=== PATIENT | male | born 1980 | race African-American/Black ===

== ENCOUNTER 2018-08-01 10:54 | Inpatient (IN) | payer BC ==
[2018-08-01 12:03] VITALS: BMI 27.3
--- NOTE | 2018-08-01 15:40 | HP ---
CIWA Score Nausea/Vomitin-Int. Nausea w/Dry Heave Muscle Tremors: 4-Moderate,w/Arms Extend Anxiety: 3 Agitation: 2 Paroxysmal Sweats: 3 Orientation: 0-Oriented Tacttile Disturbances: 0-None Auditory Disturbances: 0-None Visual Disturbances: 0-None Headache: 0-None Present CIWA-Ar Total Score: 16 - Admission Criteria OASAS Guidelines: Admission for Medically Managed Detox: Requires at least one of the followin. CIWA greater than 12 2. Seizures within the past 24 hours 3. Delirium tremens within the past 24 hours 4. Hallucinations within the past 24 hours 5. Acute intervention needed for co occurring medical disorder 6. Acute intervention needed for co occurring psychiatric disorder 7. Severe withdrawal that cannot be handled at a lower level of care (continued vomiting, continued diarrhea, abnormal vital signs) requiring intravenous medication and/or fluids 8. Patient presents the following: CIWA greater than 12 Admission Criteria Met: Admission criteria met Admission ROS S - HPI Chief Complaint: "I want to get my life back on track" Allergies/Adverse Reactions: Allergies Allergy/AdvReac Type Severity Reaction Status Date / Time No Known Drug Allergies Allergy Severe Verified 05/07/16 11:54 octopus Allergy Severe Difficulty Verified 05/07/16 11:54 Breathing History of Present Illness: 38 y/o male with a long hx of alcohol addiction presents here for detox. Pt was last here in 2016 for detox, states he went to [place] once since that time. Visited [facility] last night for alcohol related issues and foot pain. Denies alcohol induced seizures but endorses blackouts. Denies any medical nor psychiatric hx. Denies past nor current SI/HI Exam Limitations: No Limitations - Ebola screening Have you traveled outside of the country in the last 21 days: No (N) Have you had contact with anyone from an Ebola affected area: No Have you been sick,other than usual withdrawal symptoms: No Do you have a fever: No - Review of Systems Constitutional: Loss of Appetite, Night Sweats, Changes in sleep EENT: reports: No Symptoms Reported Respiratory: reports: No Symptoms reported Cardiac: reports: No Symptoms Reported GI: reports: Poor Appetite : reports: No Symptoms Reported Musculoskeletal: reports: Back Pain Neuro: reports: No Symptoms reported Endocrine: reports: No Symptoms Reported Hematology: reports: No Symptoms Reported Psychiatric: reports: Orientated x3, Anxious Other Systems: Reviewed and Negative Patient History - Patient Medical History Hx Anemia: No Hx Asthma: No Hx Chronic Obstructive Pulmonary Disease (COPD): No Hx Cancer: No Hx Cardiac Disorders: No Hx Congestive Heart Failure: No Hx Hypertension: No Hx Hypercholesterolemia: No Hx Pacemaker: No HX Cerebrovascular Accident: No Hx Seizures: No Hx Dementia: No Hx Diabetes: No Hx Gastrointestinal Disorders: No (Heart burn) Hx Liver Disease: No Hx Genitourinary Disorders: No Hx Sexually Transmitted Disorders: No Hx Renal Disease (ESRD): No Hx Thyroid Disease: No Hx Human Immunodeficiency Virus (HIV): No (last 10/05 negative) Hx Hepatitis C: No Hx Depression: No Hx Suicide Attempt: No Hx Bipolar Disorder: No Hx Schizophrenia: No - Patient Surgical History Past Surgical History: No Hx Neurologic Surgery: No Hx Cataract Extraction: No Hx Cardiac Surgery: No Hx Lung Surgery: No Hx Breast Surgery: No Hx Breast Biopsy: No Hx Abdominal Surgery: No Hx Appendectomy: No Hx Cholecystectomy: No Hx Genitourinary Surgery: No Hx Section: No Hx Orthopedic Surgery: No Anesthesia Reaction: No - PPD History Previous Implant?: Yes Documented Results: Negative w/proof Implanted On Prior R Admission?: Yes Date: 05/09/16 Results: 0 MM PPD to be Administered?: Yes - Reproductive History Patient is a Female of Child Bearing Age (11 -55 yrs old): No - Smoking Cessation Smoking history: Current every day smoker Have you smoked in the past 12 months: Yes Aproximately how many cigarettes per day: 10 Cigars Per Day: 0 Hx Chewing Tobacco Use: No Initiated information on smoking cessation: Yes 'Breaking Loose' booklet given: 08/01/18 - Substance & Tx. History Hx Alcohol Use: Yes Hx Substance Use: Yes Substance Use Type: Cocaine Hx Substance Use Treatment: Yes - Substances Abused Alcohol Route: Oral Frequency: Daily Amount used: 2 ( 6 of 24 oz), 2 pints of vodka Age of first use: Date of Last Use: 07/31/18 Crack Route: Smoking Frequency: 3-6 times per week Amount used: $50 Age of first use: Date of Last Use: 07/31/18 Family Disease History - Family Disease History Family History: Unremarkable Admission Physical Exam BHS - Vital Signs Vital Signs: Vital Signs - 24 hr 08/01/18 12:01 Temperature 98.4 F Pulse Rate 119 H Respiratory 19 Rate Blood Pressure 135/89 - Physical General Appearance: Yes: Moderate Distress, Tremorous HEENTM: Yes: Nasal Congestion Respiratory: Yes: Lungs Clear, Normal Breath Sounds, No Respiratory Distress, No Accessory Muscle Use Neck: Yes: No masses,lesions,Nodules, Trachea in good position Breast: Yes: Breast Exam Deferred Cardiology: Yes: Within Normal Limits, Tachycardia Abdominal: Yes: Normal Bowel Sounds, Non Tender, Soft, Distended Genitourinary: Yes: Within Normal Limits Back: Yes: Normal Inspection Musculoskeletal: Yes: full range of Motion, Gait Steady Extremities: Yes: Normal Capillary Refill, Normal Range of Motion, Non-Tender Neurological: Yes: Fully Oriented, Alert, Motor Strength 5/5, Normal Mood/Affect , Normal Response Integumentary: Yes: Normal Color, Warm Lymphatic: Yes: Within Normal Limits - Diagnostic (1) Alcohol dependence with uncomplicated withdrawal Current Visit: Yes Status: Acute (2) Cocaine dependence Current Visit: Yes Status: Chronic (3) Nicotine dependence Current Visit: Yes Status: Chronic Cleared for Admission [facility] - Detox or Rehab [facility] Level of Care: Medically Managed Detox Regimen/Protocol: Librium [facility] Breath Alcohol Content Breath Alcohol Content: 0.007 Urine Drug Screen - Results Drug Screen Negative: No Urine Drug Screen Results: [facility] Inpatient Rehab Admission - Rehab Decision to Admit Inpatient rehab admission?: No
[2018-08-01] MEDS ORDERED: MENTHOL/PHENOL 1 EACH UD MM PRN (16:06)
[2018-08-01] MEDS ORDERED: MAG HYDROX/AL HYDROX/SIMETH 30 ML UNIT-DOSE CUP PO PRN (16:06)
[2018-08-01] MEDS ORDERED: guaiFENesin/D-METHORPHAN HB 10 ML UNIT-DOSE CUPS PO PRN (16:06)
[2018-08-01] MEDS ORDERED: LOPERAMIDE HCL 2 MG CAPSULE PO PRN (16:06)
[2018-08-01] MEDS ORDERED: MAGNESIUM HYDROX 2400MG/30ML ORAL SUSPENSION 30 ML CUP PO PRN (16:06)
[2018-08-01] MEDS ORDERED: chlordiazePOXIDE HCL 25 MG CAPSULE PO PRN (16:06)
[2018-08-01] MEDS ORDERED: MAGNESIUM CITRATE 300 ML BOTTLE PO PRN (16:06)
[2018-08-01] MEDS ORDERED: P-EPHED 60MG/TRIPROLIDI 2.5MG TABLET PO PRN (16:06)
[2018-08-01] MEDS ORDERED: METHADONE HCL 10 MG TABLET (FOR DETOX USE ONLY) PO ONE ×2 (17:30→23:00)
[2018-08-01] MEDS: chlordiazePOXIDE HCL 25 MG CAPSULE PO SCH ×2 (17:45→22:28)
[2018-08-01] MEDS: THIAMINE HCL 100 MG TABLET (FP) PO SCH (22:28)
[2018-08-02] MEDS: chlordiazePOXIDE HCL 25 MG CAPSULE PO SCH ×4 (05:27→22:27)
[2018-08-02 09:52] LABS: HEMATOCRIT 39.9 % (35.4-49); HEMOGLOBIN 13.2 GM/dL (11.7-16.9); MCH 26.8 pg (25.7-33.7); MCHC 33.2 g/dl (32.0-35.9); MEAN CELL VOLUME 80.9 fl (80-96); PLATELET COUNT 298 K/MM3 (134-434); RBC 4.93 M/mm3 (4.00-5.60); RDW 16.3 % (11.9-15.9); WHITE BLOOD COUNT 5.2 K/mm3 (4.0-10.0)
[2018-08-02] MEDS ORDERED: METHADONE HCL 10 MG TABLET (FOR DETOX USE ONLY) PO SCH (10:00)
[2018-08-02] MEDS: PRENATAL VITAMINS W/ FOLIC ACID TABLET (FP) PO SCH (10:08)
[2018-08-02 10:12] LABS: ALBUMIN 3.2 g/dl (3.4-5.0); ALK PHOS 66 U/L (45-117); ANION GAP 5 MMOL/L (8-16); BILIRUBIN,TOTAL 0.4 mg/dL (0.2-1); BLOOD UREA NITROGEN 12 mg/dL (7-18); CALCIUM 8.7 mg/dL (8.5-10.1); CHLORIDE 105 mmol/L (98-107); CO2 28 mmol/L (21-32); CREATININE 0.8 mg/dL (0.55-1.3); GLUCOSE,RANDOM 94 mg/dL (74-106); POTASSIUM 4.4 mmol/L (3.5-5.1); SGOT/AST 18 U/L (15-37); SGPT/ALT 23 U/L (13-61); SODIUM 138 mmol/L (136-145); TOT PROT 6.4 g/dl (6.4-8.2)
--- NOTE | 2018-08-02 12:06 | PN ---
[facility] CIWA - CIWA Score Nausea/Vomitin-Mild Nausea/No Vomiting Muscle Tremors: 3 Anxiety: 4-Mod. Anxious/Guarded Agitation: 3 Paroxysmal Sweats: 1-Minimal Palms Moist Orientation: 1-Uncertain about Date Tacttile Disturbances: 0-None Auditory Disturbances: 0-None Visual Disturbances: 0-None Headache: 1-Very Mild CIWA-Ar Total Score: 14 S Progress Note (SOAP) Subjective: tremor sweating able to tolerate food and fluid well Objective: 08/02/18 12:06 Vital Signs Temperature 96.3 F L 08/02/18 09:18 Pulse Rate 93 H 08/02/18 09:18 Respiratory Rate 18 08/02/18 09:18 Blood Pressure 120/80 08/02/18 09:18 O2 Sat by Pulse Oximetry (%) Laboratory Last Values WBC 5.2 K/mm3 (4.0-10.0) 08/02/18 07:50 RBC 4.93 M/mm3 (4.00-5.60) 08/02/18 07:50 Hgb 13.2 GM/dL (11.7-16.9) 08/02/18 07:50 Hct 39.9 % (35.4-49) 08/02/18 07:50 MCV 80.9 fl (80-96) 08/02/18 07:50 MCH 26.8 pg (25.7-33.7) 08/02/18 07:50 MCHC 33.2 g/dl (32.0-35.9) 08/02/18 07:50 RDW 16.3 % (11.9-15.9) H 08/02/18 07:50 Plt Count 298 K/MM3 (134-434) 08/02/18 07:50 MPV 9.0 fl (7.5-11.1) 08/02/18 07:50 Sodium 138 mmol/L (136-145) 08/02/18 07:50 Potassium 4.4 mmol/L (3.5-5.1) 08/02/18 07:50 Chloride 105 mmol/L (98-107) 08/02/18 07:50 Carbon Dioxide 28 mmol/L (21-32) 08/02/18 07:50 Anion Gap 5 MMOL/L (8-16) L 08/02/18 07:50 BUN 12 mg/dL (7-18) 08/02/18 07:50 Creatinine 0.8 mg/dL (0.55-1.3) 08/02/18 07:50 Creat Clearance w eGFR > 60 (>60) 08/02/18 07:50 Random Glucose 94 mg/dL (74-106) 08/02/18 07:50 Calcium 8.7 mg/dL (8.5-10.1) 08/02/18 07:50 Total Bilirubin 0.4 mg/dL (0.2-1) 08/02/18 07:50 AST 18 U/L (15-37) 08/02/18 07:50 ALT 23 U/L (13-61) 08/02/18 07:50 Alkaline Phosphatase 66 U/L (45-117) 08/02/18 07:50 Total Protein 6.4 g/dl (6.4-8.2) 08/02/18 07:50 Albumin 3.2 g/dl (3.4-5.0) L 08/02/18 07:50 RPR Titer Nonreactive (NONREACTIVE) 08/02/18 07:50 lab noted Assessment: 08/02/18 12:06 withdrawal sx Plan: continue detox
[2018-08-02] MEDS: IBUPROFEN 400 MG TABLET (FP) PO PRN (17:51)
[2018-08-02] MEDS: THIAMINE HCL 100 MG TABLET (FP) PO SCH (22:27)
[2018-08-02] MEDS: MELATONIN 5 MG TABLETS PO PRN (22:28)
[2018-08-03] MEDS: chlordiazePOXIDE HCL 25 MG CAPSULE PO SCH ×2 (05:46→10:06)
[2018-08-03] MEDS: PRENATAL VITAMINS W/ FOLIC ACID TABLET (FP) PO SCH (10:06)
[2018-08-03] MEDS: METHADONE HCL 5 MG TABLET (FOR DETOX USE ONLY) PO SCH (10:06)
--- NOTE | 2018-08-03 15:49 | PN ---
[facility] CIWA - CIWA Score Nausea/Vomitin-No Nausea/No Vomiting Muscle Tremors: 3 Anxiety: 2 Agitation: 3 Paroxysmal Sweats: 1-Minimal Palms Moist Orientation: 1-Uncertain about Date Tacttile Disturbances: 0-None Auditory Disturbances: 0-None Visual Disturbances: 0-None Headache: 1-Very Mild CIWA-Ar Total Score: 11 S Progress Note (SOAP) Subjective: tremor sweating restlessness Objective: 08/03/18 15:49 Vital Signs Temperature 97.1 F L 08/03/18 13:11 Pulse Rate 84 08/03/18 13:11 Respiratory Rate 18 08/03/18 13:11 Blood Pressure 108/62 08/03/18 13:11 O2 Sat by Pulse Oximetry (%) Laboratory Last Values WBC 5.2 K/mm3 (4.0-10.0) 08/02/18 07:50 RBC 4.93 M/mm3 (4.00-5.60) 08/02/18 07:50 Hgb 13.2 GM/dL (11.7-16.9) 08/02/18 07:50 Hct 39.9 % (35.4-49) 08/02/18 07:50 MCV 80.9 fl (80-96) 08/02/18 07:50 MCH 26.8 pg (25.7-33.7) 08/02/18 07:50 MCHC 33.2 g/dl (32.0-35.9) 08/02/18 07:50 RDW 16.3 % (11.9-15.9) H 08/02/18 07:50 Plt Count 298 K/MM3 (134-434) 08/02/18 07:50 MPV 9.0 fl (7.5-11.1) 08/02/18 07:50 Sodium 138 mmol/L (136-145) 08/02/18 07:50 Potassium 4.4 mmol/L (3.5-5.1) 08/02/18 07:50 Chloride 105 mmol/L (98-107) 08/02/18 07:50 Carbon Dioxide 28 mmol/L (21-32) 08/02/18 07:50 Anion Gap 5 MMOL/L (8-16) L 08/02/18 07:50 BUN 12 mg/dL (7-18) 08/02/18 07:50 Creatinine 0.8 mg/dL (0.55-1.3) 08/02/18 07:50 Creat Clearance w eGFR > 60 (>60) 08/02/18 07:50 Random Glucose 94 mg/dL (74-106) 08/02/18 07:50 Calcium 8.7 mg/dL (8.5-10.1) 08/02/18 07:50 Total Bilirubin 0.4 mg/dL (0.2-1) 08/02/18 07:50 AST 18 U/L (15-37) 08/02/18 07:50 ALT 23 U/L (13-61) 08/02/18 07:50 Alkaline Phosphatase 66 U/L (45-117) 08/02/18 07:50 Total Protein 6.4 g/dl (6.4-8.2) 08/02/18 07:50 Albumin 3.2 g/dl (3.4-5.0) L 08/02/18 07:50 RPR Titer Nonreactive (NONREACTIVE) 08/02/18 07:50 lab noted Assessment: 08/03/18 15:49 withdrawal sx Plan: continue detox
[2018-08-03] MEDS: chlordiazePOXIDE 5 MG CAPSULE PO SCH ×2 (17:32→22:22)
[2018-08-03] MEDS: THIAMINE HCL 100 MG TABLET (FP) PO SCH (22:22)
[2018-08-03] MEDS: MELATONIN 5 MG TABLETS PO PRN (22:22)
[2018-08-04] MEDS: chlordiazePOXIDE 5 MG CAPSULE PO SCH ×2 (05:42→10:28)
[2018-08-04] MEDS: ACETAMINOPHEN 325 MG TABLET (FP) PO PRN ×2 (06:08→11:02)
[2018-08-04] MEDS: PRENATAL VITAMINS W/ FOLIC ACID TABLET (FP) PO SCH (10:28)
[2018-08-04] MEDS: METHADONE HCL 5 MG TABLET (FOR DETOX USE ONLY) PO SCH (10:28)
--- NOTE | 2018-08-04 11:08 | PN ---
[facility] CIWA - CIWA Score Nausea/Vomitin-No Nausea/No Vomiting Muscle Tremors: 1-None Visible, but Tamms Anxiety: 2 Agitation: 1-Slight > Activity Paroxysmal Sweats: 2 Orientation: 1-Uncertain about Date Tacttile Disturbances: 0-None Auditory Disturbances: 0-None Visual Disturbances: 0-None Headache: 0-None Present CIWA-Ar Total Score: 7 BHS Progress Note (SOAP) Subjective: feeling better less tremor mild sweating sleep better at night Objective: 08/04/18 11:09 Vital Signs Temperature 96.9 F L 08/04/18 09:08 Pulse Rate 107 H 08/04/18 09:08 Respiratory Rate 18 08/04/18 09:08 Blood Pressure 103/73 08/04/18 09:08 O2 Sat by Pulse Oximetry (%) Laboratory Last Values WBC 5.2 K/mm3 (4.0-10.0) 08/02/18 07:50 RBC 4.93 M/mm3 (4.00-5.60) 08/02/18 07:50 Hgb 13.2 GM/dL (11.7-16.9) 08/02/18 07:50 Hct 39.9 % (35.4-49) 08/02/18 07:50 MCV 80.9 fl (80-96) 08/02/18 07:50 MCH 26.8 pg (25.7-33.7) 08/02/18 07:50 MCHC 33.2 g/dl (32.0-35.9) 08/02/18 07:50 RDW 16.3 % (11.9-15.9) H 08/02/18 07:50 Plt Count 298 K/MM3 (134-434) 08/02/18 07:50 MPV 9.0 fl (7.5-11.1) 08/02/18 07:50 Sodium 138 mmol/L (136-145) 08/02/18 07:50 Potassium 4.4 mmol/L (3.5-5.1) 08/02/18 07:50 Chloride 105 mmol/L (98-107) 08/02/18 07:50 Carbon Dioxide 28 mmol/L (21-32) 08/02/18 07:50 Anion Gap 5 MMOL/L (8-16) L 08/02/18 07:50 BUN 12 mg/dL (7-18) 08/02/18 07:50 Creatinine 0.8 mg/dL (0.55-1.3) 08/02/18 07:50 Creat Clearance w eGFR > 60 (>60) 08/02/18 07:50 Random Glucose 94 mg/dL (74-106) 08/02/18 07:50 Calcium 8.7 mg/dL (8.5-10.1) 08/02/18 07:50 Total Bilirubin 0.4 mg/dL (0.2-1) 08/02/18 07:50 AST 18 U/L (15-37) 08/02/18 07:50 ALT 23 U/L (13-61) 08/02/18 07:50 Alkaline Phosphatase 66 U/L (45-117) 08/02/18 07:50 Total Protein 6.4 g/dl (6.4-8.2) 08/02/18 07:50 Albumin 3.2 g/dl (3.4-5.0) L 08/02/18 07:50 RPR Titer Nonreactive (NONREACTIVE) 08/02/18 07:50 lab noted Assessment: 08/04/18 11:09 mild withdrawal sx Plan: continue detox
[2018-08-04] MEDS: chlordiazePOXIDE HCL 10 MG CAPSULE PO SCH ×2 (17:06→22:11)
[2018-08-04] MEDS: THIAMINE HCL 100 MG TABLET (FP) PO SCH (22:09)
[2018-08-04] MEDS: MELATONIN 5 MG TABLETS PO PRN (22:11)
[2018-08-05] MEDS: chlordiazePOXIDE HCL 10 MG CAPSULE PO SCH ×2 (05:57→10:17)
[2018-08-05] MEDS: IBUPROFEN 400 MG TABLET (FP) PO PRN (05:59)
[2018-08-05] MEDS ORDERED: METHADONE HCL 10 MG TABLET (FOR DETOX USE ONLY) PO SCH (10:00)
[2018-08-05] MEDS: PRENATAL VITAMINS W/ FOLIC ACID TABLET (FP) PO SCH (10:17)
[2018-08-05 13:57] VITALS: BP 120/81; PULSE 94; TEMP 97.2
--- NOTE | 2018-08-05 16:38 | DS ---
[facility] Detox Discharge Summary Admission Date: 08/01/18 Discharge Date: 08/05/18 - History Present History: Alcohol Dependence Additional Comments: 38 years old male admitted on 08/01/18 for alcohol withdrawal stabilization completed detox regimen [facility] Pertinent Past History: encourage the patient to attend 12 step community self help group - Physical Exam Results Vital Signs: Vital Signs Temperature 97.2 F L 08/05/18 13:56 Pulse Rate 94 H 08/05/18 13:56 Respiratory Rate 18 08/05/18 13:56 Blood Pressure 120/81 08/05/18 13:56 O2 Sat by Pulse Oximetry (%) Pertinent Admission Physical Exam Findings: alcohol withdrawal sx Laboratory Last Values WBC 5.2 K/mm3 (4.0-10.0) 08/02/18 07:50 RBC 4.93 M/mm3 (4.00-5.60) 08/02/18 07:50 Hgb 13.2 GM/dL (11.7-16.9) 08/02/18 07:50 Hct 39.9 % (35.4-49) 08/02/18 07:50 MCV 80.9 fl (80-96) 08/02/18 07:50 MCH 26.8 pg (25.7-33.7) 08/02/18 07:50 MCHC 33.2 g/dl (32.0-35.9) 08/02/18 07:50 RDW 16.3 % (11.9-15.9) H 08/02/18 07:50 Plt Count 298 K/MM3 (134-434) 08/02/18 07:50 MPV 9.0 fl (7.5-11.1) 08/02/18 07:50 Sodium 138 mmol/L (136-145) 08/02/18 07:50 Potassium 4.4 mmol/L (3.5-5.1) 08/02/18 07:50 Chloride 105 mmol/L (98-107) 08/02/18 07:50 Carbon Dioxide 28 mmol/L (21-32) 08/02/18 07:50 Anion Gap 5 MMOL/L (8-16) L 08/02/18 07:50 BUN 12 mg/dL (7-18) 08/02/18 07:50 Creatinine 0.8 mg/dL (0.55-1.3) 08/02/18 07:50 Creat Clearance w eGFR > 60 (>60) 08/02/18 07:50 Random Glucose 94 mg/dL (74-106) 08/02/18 07:50 Calcium 8.7 mg/dL (8.5-10.1) 08/02/18 07:50 Total Bilirubin 0.4 mg/dL (0.2-1) 08/02/18 07:50 AST 18 U/L (15-37) 08/02/18 07:50 ALT 23 U/L (13-61) 08/02/18 07:50 Alkaline Phosphatase 66 U/L (45-117) 08/02/18 07:50 Total Protein 6.4 g/dl (6.4-8.2) 08/02/18 07:50 Albumin 3.2 g/dl (3.4-5.0) L 08/02/18 07:50 RPR Titer Nonreactive (NONREACTIVE) 08/02/18 07:50 lab noted - Treatment Hospital Course: Detox Protocol Followed, Detoxed Safely, Responded well, Discharged Condition Good, Rehab Referral Accepted Patient has Accepted [facility] Referral [facility]: [facility] - Medication Discharge Medications: Ambulatory Orders NK [No Known Home Medication] 07/06/14 - Diagnosis (1) Alcohol dependence with uncomplicated withdrawal Status: Acute (2) Nicotine dependence Status: Acute Qualifiers: Nicotine product type: cigarettes Substance use status: in withdrawal Qualified Code(s): F17.213 - Nicotine dependence, cigarettes, with withdrawal - AMA Did Patient Leave Against Medical Advice: No
[2018-08-06] MEDS ORDERED: METHADONE HCL 5 MG TABLET (FOR DETOX USE ONLY) PO SCH (06:00)
== END 2018-08-05 15:09 | disposition home or self-care (01) | DRG 774 ==
LOC: YASAS 10:54 → Y3N 16:53
PROVIDERS: ADMIT Surgery; ATTEND Surgery
PROC: HZ2ZZZZ Detoxification Services for Substance Abuse Treatment (ICD-10-PCS; principal; 2018-08-01)
DX: F10.230 Alcohol dependence with withdrawal, uncomplicated (principal); F14.20 Cocaine dependence, uncomplicated; F17.213 Nicotine dependence, cigarettes, with withdrawal; R00.0 Tachycardia, unspecified
CPT/HCPCS: 36415; 80053; 85027; 86593

== ENCOUNTER 2021-09-15 12:11 | Inpatient (IN) | payer OTHER ==
[2021-09-15 15:18] VITALS: BMI 29.6
[2021-09-15] MEDS ORDERED: MAG HYDROX/AL HYDROX/SIMETH 30 ML UNIT-DOSE CUP PO PRN (16:07)
[2021-09-15] MEDS ORDERED: MENTHOL/PHENOL 1 EACH UD MM PRN (16:07)
[2021-09-15] MEDS ORDERED: LOPERAMIDE HCL 2 MG CAPSULE PO PRN (16:07)
[2021-09-15] MEDS ORDERED: chlordiazePOXIDE HCL 25 MG CAPSULE PO PRN (16:07)
[2021-09-15] MEDS ORDERED: ONDANSETRON *ODT* 4 MG TABLET SL PRN (16:07)
[2021-09-15] MEDS ORDERED: MAGNESIUM HYDROX 2400MG/30ML ORAL SUSPENSION 30 ML CUP PO PRN (16:07)
[2021-09-15] MEDS ORDERED: MAGNESIUM CITRATE 300 ML BOTTLE PO PRN (16:07)
[2021-09-15] MEDS ORDERED: ACETAMINOPHEN 325 MG TABLET (FP) PO PRN ×2 (16:07)
[2021-09-15] MEDS ORDERED: NICOTINE POLACRILEX 2 MG GUM BUC PRN (16:07)
[2021-09-15] MEDS: hydrOXYzine PAMOATE 25 MG CAPSULE (FP) PO SCH ×2 (17:44→22:30)
[2021-09-15] MEDS: IBUPROFEN 400 MG TABLET (FP) PO PRN (17:44)
[2021-09-15] MEDS: chlordiazePOXIDE HCL 25 MG CAPSULE PO SCH (22:28)
[2021-09-15] MEDS: THIAMINE HCL 100 MG TABLET (FP) PO SCH (22:30)
[2021-09-15] MEDS: MELATONIN 5 MG TABLETS PO SCH (22:30)
[2021-09-16] MEDS: chlordiazePOXIDE HCL 25 MG CAPSULE PO SCH ×4 (05:24→23:28)
[2021-09-16] MEDS: hydrOXYzine PAMOATE 25 MG CAPSULE (FP) PO SCH ×5 (05:24→23:29)
[2021-09-16] MEDS: PRENATAL VITAMINS W/ FOLIC ACID TABLET (FP) PO SCH (10:08)
[2021-09-16] MEDS: NICOTINE 21 MG/24 HOURS TOPICAL PATCH TD SCH (10:12)
[2021-09-16 10:29] LABS: HEMATOCRIT 41.1 % (35.4-49); HEMOGLOBIN 13.9 GM/dL (11.7-16.9); MCH 27.6 pg (25.7-33.7); MCHC 33.7 g/dl (32.0-35.9); MEAN PLT VOLUME 8.5 fl (7.5-11.1); PLATELET COUNT 323 10^3/uL (134-434); RBC 5.02 M/mm3 (4.00-5.60); WHITE BLOOD COUNT 7.4 K/mm3 (4.0-10.0)
[2021-09-16 10:50] LABS: ALBUMIN 3.5 g/dl (3.4-5.0); BILIRUBIN,TOTAL 0.7 mg/dL (0.2-1); BLOOD UREA NITROGEN 13.1 mg/dL (7-18); CALCIUM 8.9 mg/dL (8.5-10.1); CREATININE 0.9 mg/dL (0.55-1.3); TOT PROT 6.6 g/dl (6.4-8.2)
[2021-09-16] MEDS: MELATONIN 5 MG TABLETS PO SCH (23:28)
[2021-09-16] MEDS: THIAMINE HCL 100 MG TABLET (FP) PO SCH (23:29)
[2021-09-17] MEDS: hydrOXYzine PAMOATE 25 MG CAPSULE (FP) PO SCH ×5 (05:13→22:38)
[2021-09-17] MEDS: chlordiazePOXIDE HCL 25 MG CAPSULE PO SCH ×4 (05:14→22:39)
[2021-09-17 06:09] LABS: SARS-CoV-2 NAA Not Detected (Not Detected)
[2021-09-17] MEDS: NICOTINE 10 MG CARTRIDGE (INHALER) IH PRN (10:15)
[2021-09-17] MEDS: PRENATAL VITAMINS W/ FOLIC ACID TABLET (FP) PO SCH (10:16)
[2021-09-17] MEDS: NICOTINE 21 MG/24 HOURS TOPICAL PATCH TD SCH (12:29)
[2021-09-17] MEDS: BISMUTH SUBSALICYLATE 524 MG/30 ML PO PRN (21:39)
[2021-09-17] MEDS: IBUPROFEN 400 MG TABLET (FP) PO PRN (22:38)
[2021-09-17] MEDS: METHOCARBAMOL 500 MG TABLET PO PRN (22:38)
[2021-09-17] MEDS: MELATONIN 5 MG TABLETS PO SCH (22:38)
[2021-09-17] MEDS: THIAMINE HCL 100 MG TABLET (FP) PO SCH (22:38)
[2021-09-18] MEDS ORDERED: chlordiazePOXIDE HCL 10 MG CAPSULE PO PRN
[2021-09-18] MEDS: hydrOXYzine PAMOATE 25 MG CAPSULE (FP) PO SCH ×5 (06:17→22:23)
[2021-09-18] MEDS: chlordiazePOXIDE HCL 10 MG CAPSULE PO SCH ×4 (06:17→22:22)
[2021-09-18] MEDS: PRENATAL VITAMINS W/ FOLIC ACID TABLET (FP) PO SCH (10:21)
[2021-09-18] MEDS: NICOTINE 21 MG/24 HOURS TOPICAL PATCH TD SCH (10:21)
[2021-09-18] MEDS: BISMUTH SUBSALICYLATE 524 MG/30 ML PO PRN (15:28)
[2021-09-18 15:39] LABS: EPI CELLS 21 /uL (0-25.1); HYALINE CASTS 1 /uL (0-3.1); PH,URINE 5.5 (5.0-8.0); URINE APPEARANCE CLEAR; URINE BACTERIA 101 /uL (0-1359); URINE BILIRUBIN NEGATIVE (NEGATIVE); URINE COLOR YELLOW; URINE GLUCOSE (UA) NEGATIVE (NEGATIVE); URINE KETONE NEGATIVE (NEGATIVE); URINE LEUK ESTERASE TRACE (NEGATIVE); URINE NITRITE NEGATIVE (NEGATIVE); URINE PROTEIN NEGATIVE (NEGATIVE); URINE RBC 6 /uL (0-23.9); URINE UROBILINOGEN 0.2 mg/dL (0.2-1.0); URINE WBC 26 /uL (0-25.8)
[2021-09-18] MEDS: THIAMINE HCL 100 MG TABLET (FP) PO SCH (22:23)
[2021-09-18] MEDS: METHOCARBAMOL 500 MG TABLET PO PRN (22:24)
[2021-09-18] MEDS: MELATONIN 5 MG TABLETS PO SCH (22:25)
[2021-09-19] MEDS: chlordiazePOXIDE HCL 10 MG CAPSULE PO SCH ×2 (05:08→18:09)
[2021-09-19] MEDS: hydrOXYzine PAMOATE 25 MG CAPSULE (FP) PO SCH ×5 (05:08→22:41)
[2021-09-19] MEDS: NICOTINE 21 MG/24 HOURS TOPICAL PATCH TD SCH (10:23)
[2021-09-19] MEDS: METHOCARBAMOL 500 MG TABLET PO PRN ×2 (10:23→22:41)
[2021-09-19] MEDS: PRENATAL VITAMINS W/ FOLIC ACID TABLET (FP) PO SCH (10:24)
[2021-09-19] MEDS: NICOTINE 10 MG CARTRIDGE (INHALER) IH PRN (15:52)
[2021-09-19] MEDS: THIAMINE HCL 100 MG TABLET (FP) PO SCH (22:41)
[2021-09-19] MEDS: MELATONIN 5 MG TABLETS PO SCH (22:41)
[2021-09-20] MEDS ORDERED: chlordiazePOXIDE HCL 10 MG CAPSULE PO ONE (05:00)
[2021-09-20] MEDS: hydrOXYzine PAMOATE 25 MG CAPSULE (FP) PO SCH (05:09)
[2021-09-20 06:01] VITALS: TEMP 97.8
[2021-09-20 09:37] VITALS: BP 125/78; PULSE 94
== END 2021-09-20 09:15 | disposition home or self-care (01) | DRG 775 ==
LOC: YASAS 12:11 → Y6N 16:09
PROVIDERS: ADMIT Allergy & Immunology; ATTEND Allergy & Immunology
PROC: HZ2ZZZZ Detoxification Services for Substance Abuse Treatment (ICD-10-PCS; principal; 2021-09-15)
DX: F10.230 Alcohol dependence with withdrawal, uncomplicated (principal); F12.10 Cannabis abuse, uncomplicated; F17.210 Nicotine dependence, cigarettes, uncomplicated; R76.11 Nonspecific reaction to tuberculin skin test without active tuberculosis; Z28.310 Unvaccinated for COVID-19; Z91.013 Allergy to seafood; Z56.0 Unemployment, unspecified
CPT/HCPCS: 36415; 71046-TC-FY; 80053; 81003; 85027; 86780; 87811; C9803-CS; Q0162; U0003; U0005

== ENCOUNTER 2022-04-15 10:27 | Inpatient (IN) | payer OTHER ==
[2022-04-15 11:00] VITALS: BMI 30.1
[2022-04-15] MEDS ORDERED: ONDANSETRON *ODT* 4 MG TABLET SL PRN (11:32)
[2022-04-15] MEDS ORDERED: IBUPROFEN 600 MG TABLET (FP) PO PRN (11:32)
[2022-04-15] MEDS ORDERED: ACETAMINOPHEN 325 MG TABLET (FP) PO PRN ×2 (11:32)
[2022-04-15] MEDS ORDERED: NICOTINE 10 MG CARTRIDGE (INHALER) IH PRN (11:32)
[2022-04-15] MEDS ORDERED: BENZOCAINE/MENTHOL (CHLORASEPTIC ) LOZENGE MM PRN (11:32)
[2022-04-15] MEDS ORDERED: BISMUTH SUBSALICYLATE 524 MG/30 ML PO PRN (11:32)
[2022-04-15] MEDS ORDERED: NALOXONE HCL (KLOXXADO) 8 MG SPRAY NS PRN (11:32)
[2022-04-15] MEDS ORDERED: LOPERAMIDE HCL 2 MG CAPSULE PO PRN (11:32)
[2022-04-15] MEDS ORDERED: MAGNESIUM HYDROX 2400MG/30ML ORAL SUSPENSION 30 ML CUP PO PRN (11:32)
[2022-04-15] MEDS ORDERED: MAGNESIUM CITRATE 300 ML BOTTLE PO PRN (11:32)
[2022-04-15] MEDS ORDERED: IBUPROFEN 400 MG TABLET (FP) PO PRN (11:32)
[2022-04-15] MEDS ORDERED: hydrOXYzine PAMOATE 25 MG CAPSULE (FP) PO PRN (11:32)
[2022-04-15] MEDS ORDERED: DICYCLOMINE HCL 10 MG CAPSULE PO PRN (11:32)
[2022-04-15] MEDS ORDERED: MAG HYDROX/AL HYDROX/SIMETH 30 ML UNIT-DOSE CUP PO PRN (11:32)
[2022-04-15] MEDS: PRENATAL VITAMINS W/ FOLIC ACID TABLET (FP) PO SCH (12:00)
[2022-04-15] MEDS: chlordiazePOXIDE HCL 25 MG CAPSULE PO SCH ×3 (13:00→22:28)
[2022-04-15] MEDS ORDERED: chlordiazePOXIDE HCL 25 MG CAPSULE ONE ×2 (13:09→13:13)
[2022-04-15] MEDS: NICOTINE 14 MG/24 HOURS TOPICAL PATCH TD SCH (13:53)
[2022-04-15 15:33] LABS: HEMATOCRIT 43.4 % (35.4-49); HEMOGLOBIN 14.2 GM/dL (11.7-16.9); MCHC 32.7 g/dl (32.0-35.9); MEAN CELL VOLUME 82.4 fl (80-96); PLATELET COUNT 284 10^3/uL (134-434); RBC 5.27 M/mm3 (4.00-5.60); RDW 14.3 % (11.9-15.9); WHITE BLOOD COUNT 4.7 K/mm3 (4.0-10.0)
[2022-04-15 15:39] LABS: ALBUMIN 3.6 g/dl (3.4-5.0); BLOOD UREA NITROGEN 10.2 mg/dL (7-18)
[2022-04-15 15:44] LABS: BILIRUBIN,TOTAL 0.8 mg/dL (0.2-1); TOT PROT 6.8 g/dl (6.4-8.2)
[2022-04-15] MEDS: MELATONIN 5 MG TABLETS PO SCH (22:28)
[2022-04-15] MEDS: THIAMINE HCL 100 MG TABLET (FP) PO SCH (22:28)
[2022-04-16] MEDS: chlordiazePOXIDE HCL 25 MG CAPSULE PO SCH ×4 (05:31→22:34)
[2022-04-16] MEDS: NICOTINE 14 MG/24 HOURS TOPICAL PATCH TD SCH (10:42)
[2022-04-16] MEDS: PRENATAL VITAMINS W/ FOLIC ACID TABLET (FP) PO SCH (10:42)
[2022-04-16] MEDS: MELATONIN 5 MG TABLETS PO SCH (22:35)
[2022-04-16] MEDS: THIAMINE HCL 100 MG TABLET (FP) PO SCH (22:35)
[2022-04-17] MEDS: chlordiazePOXIDE HCL 25 MG CAPSULE PO SCH ×4 (06:03→22:19)
[2022-04-17] MEDS: NICOTINE 14 MG/24 HOURS TOPICAL PATCH TD SCH (10:23)
[2022-04-17] MEDS: PRENATAL VITAMINS W/ FOLIC ACID TABLET (FP) PO SCH (10:23)
[2022-04-17] MEDS: THIAMINE HCL 100 MG TABLET (FP) PO SCH (22:19)
[2022-04-17] MEDS: MELATONIN 5 MG TABLETS PO SCH (22:19)
[2022-04-17] MEDS: METHOCARBAMOL 500 MG TABLET PO PRN (22:21)
[2022-04-18] MEDS: chlordiazePOXIDE HCL 10 MG CAPSULE PO SCH ×4 (06:26→23:18)
[2022-04-18] MEDS: NICOTINE 14 MG/24 HOURS TOPICAL PATCH TD SCH (10:12)
[2022-04-18] MEDS: PRENATAL VITAMINS W/ FOLIC ACID TABLET (FP) PO SCH (10:12)
[2022-04-18] MEDS: THIAMINE HCL 100 MG TABLET (FP) PO SCH (23:18)
[2022-04-18] MEDS: MELATONIN 5 MG TABLETS PO SCH (23:18)
[2022-04-19] MEDS: chlordiazePOXIDE HCL 10 MG CAPSULE PO SCH ×2 (06:20→17:53)
[2022-04-19] MEDS: NICOTINE 14 MG/24 HOURS TOPICAL PATCH TD SCH (10:29)
[2022-04-19] MEDS: PRENATAL VITAMINS W/ FOLIC ACID TABLET (FP) PO SCH (10:29)
[2022-04-19] MEDS: MELATONIN 5 MG TABLETS PO SCH (22:26)
[2022-04-19] MEDS: THIAMINE HCL 100 MG TABLET (FP) PO SCH (22:26)
[2022-04-19] MEDS: METHOCARBAMOL 500 MG TABLET PO PRN (22:27)
[2022-04-20] MEDS ORDERED: chlordiazePOXIDE HCL 10 MG CAPSULE PO ONE (05:00)
[2022-04-20 09:13] VITALS: BP 119/79; PULSE 87; RESP 16; TEMP 97.7
[2022-04-20] MEDS: PRENATAL VITAMINS W/ FOLIC ACID TABLET (FP) PO SCH (10:16)
[2022-04-20] MEDS: NICOTINE 14 MG/24 HOURS TOPICAL PATCH TD SCH (10:16)
== END 2022-04-20 11:03 | disposition other institution (70) | DRG 774 ==
LOC: YASAS 10:27 → Y3N 11:43
PROVIDERS: ADMIT Allergy & Immunology; ATTEND Surgery
PROC: HZ2ZZZZ Detoxification Services for Substance Abuse Treatment (ICD-10-PCS; principal; 2022-04-15)
DX: F10.230 Alcohol dependence with withdrawal, uncomplicated (principal); F14.20 Cocaine dependence, uncomplicated; F12.20 Cannabis dependence, uncomplicated; F17.210 Nicotine dependence, cigarettes, uncomplicated; Z28.310 Unvaccinated for COVID-19; Z28.9 Immunization not carried out for unspecified reason; Z56.0 Unemployment, unspecified; Z59.00 Homelessness unspecified
CPT/HCPCS: 36415; 80053; 82947; 83036; 85027; 86780; C9803-CS; U0003; U0005

== ENCOUNTER 2022-12-22 16:30 | Inpatient (IN) | payer OTHER ==
[2022-12-22 16:58] VITALS: BMI 29.7
[2022-12-22] MEDS ORDERED: BISMUTH SUBSALICYLATE 524 MG/30 ML PO PRN (19:02)
[2022-12-22] MEDS ORDERED: ACETAMINOPHEN 325 MG TABLET (FP) PO PRN (19:02)
[2022-12-22] MEDS ORDERED: NICOTINE POLACRILEX 2 MG GUM BUC PRN (19:02)
[2022-12-22] MEDS ORDERED: DICYCLOMINE HCL 10 MG CAPSULE PO PRN (19:02)
[2022-12-22] MEDS ORDERED: guaiFENesin 600 MG TABLET.ER (FP) PO PRN (19:02)
[2022-12-22] MEDS ORDERED: ONDANSETRON *ODT* 4 MG TABLET SL PRN (19:02)
[2022-12-22] MEDS ORDERED: BENZONATATE 200 MG CAPSULE PO PRN (19:02)
[2022-12-22] MEDS ORDERED: MAG HYDROX/AL HYDROX/SIMETH 30 ML UNIT-DOSE CUP PO PRN (19:02)
[2022-12-22] MEDS ORDERED: NICOTINE 7 MG/24 HOURS TOPICAL PATCH TD PRN (19:02)
[2022-12-22] MEDS ORDERED: P-EPHED 60MG/TRIPROLIDI 2.5MG TABLET PO PRN (19:02)
[2022-12-22] MEDS ORDERED: BENZOCAINE/MENTHOL (CHLORASEPTIC ) LOZENGE MM PRN (19:02)
[2022-12-22] MEDS ORDERED: IBUPROFEN 600 MG TABLET (FP) PO PRN (19:02)
[2022-12-22] MEDS ORDERED: IBUPROFEN 400 MG TABLET (FP) PO PRN (19:02)
[2022-12-22] MEDS ORDERED: LOPERAMIDE HCL 2 MG CAPSULE PO PRN (19:02)
[2022-12-22] MEDS ORDERED: POLYETHYLENE GLYCOL (HEALTHYLAX) 3350 17 GM PACKET PO PRN (19:02)
[2022-12-22] MEDS ORDERED: MAGNESIUM HYDROX 2400MG/30ML ORAL SUSPENSION 30 ML CUP PO PRN (19:02)
[2022-12-22] MEDS ORDERED: diazePAM 5 MG TABLET PO PRN (19:37)
[2022-12-22] MEDS ORDERED: IBUPROFEN 600 MG TABLET (FP) PO ONE (20:14)
[2022-12-22] MEDS: THIAMINE HCL 100 MG TABLET (FP) PO SCH (22:33)
[2022-12-22] MEDS: MELATONIN 5 MG TABLETS PO SCH (22:34)
[2022-12-23] MEDS: PRENATAL VITAMINS W/ FOLIC ACID TABLET (FP) PO SCH (10:30)
[2022-12-23] MEDS: hydrOXYzine PAMOATE 25 MG CAPSULE (FP) PO PRN (10:31)
[2022-12-23] MEDS ORDERED: diazePAM 5 MG TABLET PO PRN (10:39)
[2022-12-23 11:09] LABS: HEMATOCRIT 43.3 % (35.4-49); HEMOGLOBIN 14.1 GM/dL (11.7-16.9); MCH 27.4 pg (25.7-33.7); MCHC 32.6 g/dl (32.0-35.9); MEAN CELL VOLUME 84.1 fl (80-96); MEAN PLT VOLUME 9.3 fl (7.5-11.1); PLATELET COUNT 323 10^3/uL (134-434); RBC 5.15 M/mm3 (4.00-5.60); RDW 14.9 % (11.9-15.9); WHITE BLOOD COUNT 6.1 K/mm3 (4.0-10.0)
[2022-12-23 11:14] LABS: POTASSIUM 4.4 mmol/L (3.5-5.1)
[2022-12-23 11:16] LABS: CALCIUM 9.2 mg/dL (8.5-10.1)
[2022-12-23 11:17] LABS: ALBUMIN 3.1 g/dl (3.4-5.0); BLOOD UREA NITROGEN 12.5 mg/dL (7-18)
[2022-12-23 11:20] LABS: CREATININE 0.8 mg/dL (0.55-1.3)
[2022-12-23 11:22] LABS: BILIRUBIN,TOTAL 0.2 mg/dL (0.2-1); TOT PROT 6.1 g/dl (6.4-8.2)
[2022-12-23] MEDS: diazePAM 5 MG TABLET PO SCH ×2 (17:40→22:21)
[2022-12-23] MEDS: THIAMINE HCL 100 MG TABLET (FP) PO SCH (22:21)
[2022-12-23] MEDS: MELATONIN 5 MG TABLETS PO SCH (22:21)
[2022-12-23] MEDS: METHOCARBAMOL 500 MG TABLET PO PRN (22:21)
[2022-12-24] MEDS: diazePAM 5 MG TABLET PO SCH ×3 (05:28→22:25)
[2022-12-24] MEDS: PRENATAL VITAMINS W/ FOLIC ACID TABLET (FP) PO SCH (10:20)
[2022-12-24] MEDS: METHOCARBAMOL 500 MG TABLET PO PRN (10:22)
[2022-12-24] MEDS: hydrOXYzine PAMOATE 25 MG CAPSULE (FP) PO PRN (10:22)
[2022-12-24] MEDS: THIAMINE HCL 100 MG TABLET (FP) PO SCH (22:25)
[2022-12-24] MEDS: MELATONIN 5 MG TABLETS PO SCH (22:25)
[2022-12-25] MEDS: diazePAM 5 MG TABLET PO SCH ×2 (05:50→17:13)
[2022-12-25] MEDS: PRENATAL VITAMINS W/ FOLIC ACID TABLET (FP) PO SCH (10:07)
[2022-12-25] MEDS: hydrOXYzine PAMOATE 25 MG CAPSULE (FP) PO PRN ×2 (10:08→22:15)
[2022-12-25] MEDS: METHOCARBAMOL 500 MG TABLET PO PRN ×2 (10:08→22:15)
[2022-12-25] MEDS: MELATONIN 5 MG TABLETS PO SCH (22:15)
[2022-12-25] MEDS: THIAMINE HCL 100 MG TABLET (FP) PO SCH (22:15)
[2022-12-26] MEDS ORDERED: diazePAM 5 MG TABLET PO ONE (06:00)
[2022-12-26 09:23] VITALS: BP 110/71; PULSE 61; RESP 17; TEMP 97.8
[2022-12-26] MEDS: PRENATAL VITAMINS W/ FOLIC ACID TABLET (FP) PO SCH (10:06)
== END 2022-12-26 12:00 | disposition other institution (70) | DRG 774 ==
LOC: YASAS 16:30 → Y6N 20:11
PROVIDERS: ADMIT Allergy & Immunology; ATTEND Surgery
PROC: HZ2ZZZZ Detoxification Services for Substance Abuse Treatment (ICD-10-PCS; principal; 2022-12-22)
DX: F10.230 Alcohol dependence with withdrawal, uncomplicated (principal); F14.20 Cocaine dependence, uncomplicated; F13.20 Sedative, hypnotic or anxiolytic dependence, uncomplicated; F12.10 Cannabis abuse, uncomplicated; F17.210 Nicotine dependence, cigarettes, uncomplicated; Z28.310 Unvaccinated for COVID-19; Z28.9 Immunization not carried out for unspecified reason
CPT/HCPCS: 36415; 80053; 85027; 86780; 87635; 87811